=== PATIENT | male | born 1965 | race American Indian/Alaskan Native ===

== ENCOUNTER 2020-10-13 06:17 | Emergency (ER) | payer SELFPAY ==
[2020-10-13 06:51] VITALS: BP 171/93
[2020-10-13] MEDS ORDERED: oxyCODONE /ACETAMINOPHEN 5-325MG TAB PO ONE (07:27)
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
--- NOTE | 2020-10-13 08:42 | XRay Report ---
XR shoulder 2+V RT INDICATION / CLINICAL INFORMATION: shoulder pain. COMPARISON: None available. FINDINGS: No acute fracture. Normal alignment. Mild acromioclavicular joint degenerative changes. Glenohumera l joint space is preserved.. No destructive osseous lesion or suspicious periosteal reaction. Impression: 1. Mild AC joint degenerative changes. No significant abnormality. Signer Name: Rafal Johnson MD Signed: 10/13/2020 8:38 AM Workstation Name: [id number]
== END 2020-10-13 08:59 | disposition home or self-care (01) ==
LOC: ED 06:17
DX: S01.81XA Laceration without foreign body of other part of head, initial encounter (principal); F17.200 Nicotine dependence, unspecified, uncomplicated; Z79.899 Other long term (current) drug therapy; Z98.890 Other specified postprocedural states; Y08.89XA Assault by other specified means, initial encounter; Y93.89 Activity, other specified; Y92.89 Other specified places as the place of occurrence of the external cause; Y99.8 Other external cause status
CPT/HCPCS: 70450; 70486; 72125